=== PATIENT | female | born 1975 | race African-American/Black ===

== ENCOUNTER 2018-03-19 00:54 | Emergency (ER) | payer MEDICAID ==
[~2018-03-19] VITALS: Ht 177.8 cm; Wt 70.9 kg
[2018-03-19 00:59] VITALS: Ht 177.8 cm; Wt 70.9 kg
[2018-03-19] MEDS ORDERED: MOBIC7.5 MG PO (01:00)
[2018-03-19] MEDS ORDERED: NORCO 5/325 TAB1 TAB (01:00)
[2018-03-19] MEDS ORDERED: DEPO SHOT (01:00)
[2018-03-19] MEDS ORDERED: ROBAXIN500 MG PO (01:01)
[2018-03-19] MEDS ORDERED: NORCO 7.5/325 T1 TA1 PO (01:17)
[2018-03-19 01:32] VITALS: BP 144/89
== END 2018-03-19 01:32 | disposition home or self-care (01) ==
LOC: D.ER 00:54
DX: R10.2 Pelvic and perineal pain (principal); F17.200 Nicotine dependence, unspecified, uncomplicated